=== PATIENT | male | born 1975 | race Caucasian/White ===

== ENCOUNTER 2017-08-05 20:45 | Emergency (ER) | payer OTHER, BC ==
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
== END 2017-08-05 22:56 | disposition disaster alternative care site (69) ==
LOC: GACC 20:45
DX: S00.03XA Contusion of scalp, initial encounter (principal); M54.2 Cervicalgia; J45.909 Unspecified asthma, uncomplicated; E66.01 Morbid (severe) obesity due to excess calories; F17.220 Nicotine dependence, chewing tobacco, uncomplicated; Z79.899 Other long term (current) drug therapy; Z88.0 Allergy status to penicillin; V48.5XXA Car driver injured in noncollision transport accident in traffic accident, initial encounter